=== PATIENT | female | born 1980 | race American Indian/Alaskan Native ===

== ENCOUNTER 2019-02-19 12:49 | Outpatient (CLI) | payer OTHER ==
--- NOTE | 2019-02-19 14:49 | Mammography Report ---
LEFT DIGITAL DIAGNOSTIC MAMMOGRAM: 02/19/19 12:49:00 CLINICAL: For clip placement immediately status post ultrasound biopsy. COMPARISON:02/06/19 [facility] mammogram FINDINGS: A biopsy clip is now identified in the upper outer quadrant in the clip position is concordant with the palpable marker on the comparison study. IMPRESSION: Concordant clip placement status post ultrasound biopsy. BI-RADS CATEGORY: 4--Suspicious Pathology pending.
--- NOTE | 2019-02-19 14:56 | Ultrasound Report ---
ULTRASOUND GUIDED NEEDLE CORE BIOPSY LEFT BREAST WITH CLIP PLACEMENT: 02/19/19 13:00:00 CLINICAL: Left breast mass COMPARISON :02/06/19 [facility] mammogram and ultrasound FINDINGS: The procedure was explained to the patient and informed consent was obtained. Ultrasound demonstrated the previously identified irregular heterogeneous solid hypoechoic mass at 1:30 o'clock 10 cm from the nipple. An adjacent cyst measures 1 cm. I marked the breast with a felt tip marker and a time out was called. The skin was prepped with Betadine and anesthetized with 1% lidocaine. Needle core biopsy was performed through a tiny dermatotomy using ultrasound guidance, 2% lidocaine with epinephrine for deep anesthesia and a 14-gauge Achieve biopsy device. 3 cores were obtained and placed in formalin. The cyst was also pierced with the biopsy device and showed complete collapse. A clip was deployed at the site of the biopsy. The patient tolerated the procedure well and there were no apparent complications. Hemostasis was achieved with minimal pressure and a sterile dressing was applied. A two view mammogram demonstrated concordant placement of the clip. She left the department in good condition and was given instructions for wound care and followup. IMPRESSION: Uncomplicated ultrasound guided needle core biopsy with clip placement left breast.
== END 2019-02-19 12:50 | disposition home or self-care (01) ==
LOC: SPVWC 12:49
PROVIDERS: ATTEND Surgery
DX: D24.2 Benign neoplasm of left breast (principal); N60.92 Unspecified benign mammary dysplasia of left breast; N60.82 Other benign mammary dysplasias of left breast
CPT/HCPCS: 88305

== ENCOUNTER 2019-10-23 08:32 | Outpatient (CLI) | payer OTHER ==
--- NOTE | 2019-10-23 10:07 | Ultrasound Report ---
LEFT BREAST ULTRASOUND HISTORY: Status post left ultrasound guided benign breast biopsy 02/19/2019. Increased graphic density in the upper outer quadrant at the site of the biopsy. COMPARISON: 02/06/2019 ultrasound and 10/15/2019 left mammogram. FINDINGS: Sonographic evaluation focused upon the upper outer location of the left breast demonstrate s benign fibroglandular structures and a few benign cysts in the area of the previous biopsy at 1:30 to 2:00 10 cm from the nipple. No mass or suspicious shadowing. IMPRESSION: Benign fibrocystic changes in the upper outer left breast. No suspicious finding. If the clinical examination remains stable, recommend bilateral annual screening mammographic evaluat ion. BIRADS 2: Benign Signer Name: José Manuel Meza MD Signed: 10/23/2019 10:03 AM Workstation Name: [id number]
== END 2019-10-23 08:33 | disposition home or self-care (01) ==
LOC: SPVWC 08:32
PROVIDERS: ATTEND Surgery
DX: R92.8 Other abnormal and inconclusive findings on diagnostic imaging of breast (principal); N60.02 Solitary cyst of left breast

== ENCOUNTER 2021-02-24 08:43 | Outpatient (CLI) | payer OTHER ==
--- NOTE | 2021-02-24 14:06 | Mammography Report ---
DIGITAL SCREENING MAMMOGRAM WITH TOMOSYNTHESIS WITH CAD, 02/24/2021 CLINICAL INFORMATION / INDICATION: Routine Screening Mammography. TECHNIQUE: Digital bilateral 2D and 3D mammography with tomosynthesis was obtained in the craniocaud al and mediolateral oblique projections. Computer-Aided Detection (CAD) analysis was used for interp retation of this study. COMPARISON: Prior mammograms 02/24/2020, 10/08/2019, 02/19/2019, and 02/06/2019 FINDINGS: Breast Density: The breasts are heterogeneously dense, which may obscure small masses. No dominant mass, suspicious calcifications, or architectural distortion in either breast. There is a stable biopsy clip in the left breast. There has been no significant change compared with the prior examination. IMPRESSION: No mammographic evidence of malignancy. Follow up recommendation: Routine yearly BI-RADS Category 2: Benign. A "normal" or negative report should not discourage follow up or biopsy of a clinically significant f inding. A written summary of these findings will be mailed to the patient. The patient will be entered into a mammography reporting system which will generate a reminder letter for the patient's next appointmen t at the appropriate interval. The [employer] recommends yearly mammograms starting at age 40 and continuing as l lori as a woman is in good health. Breast MRI is recommended for women with an approximate 20-25% or greater lifetime risk of breast cancer, including women with a strong family history of breast or ova abner cancer or who have been treated for Hodgkin's disease. Signer Name: Michaela Jennings MD Signed: 02/24/2021 2:02 PM Workstation Name: [id number]
== END 2021-02-24 08:44 | disposition home or self-care (01) ==
LOC: SPVWC 08:43
PROVIDERS: ATTEND Surgery
DX: Z12.31 Encounter for screening mammogram for malignant neoplasm of breast (principal)
CPT/HCPCS: 77063; 77067